=== PATIENT | female | born 1995 | race African-American/Black ===

== ENCOUNTER 2017-05-01 22:43 | Emergency (ER) | payer MEDICAID ==
[~2017-05-01] VITALS: Ht 162.6 cm; Wt 56.2 kg
[~2017-05-01 22:43] MED LIST: KEFLEX500 MG ORAL; NKM
--- NOTE | 2017-05-01 23:13 | Emergency Room Report ---
History of Present Illness General Chief Complaint: General Complaint Source: Patient Present Illness HPI Is a 21-year-old female with no past medical history. She presents with multiple complaints. She's been complaining of an of sore throat and phlegm in the back of throat for the last month. Also with some chest pain from coughing. No fever or chills. No nausea no vomiting. [place] weak and tired. Also some weight loss. Denies any other complaint. No urinary complaint. Allergies: Coded Allergies: No Known Allergies (Unverified , 04/25/14) Patient History Past Medical History: see triage record, old chart reviewed Past Surgical History: other Pertinent Family History: none Social History: Denies: smoking Last Menstrual Period: 1 week ago Now: No Immunizations: other Reviewed Nursing Documentation: PMH: Agreed, PSxH: Agreed Nursing Documentation-PMH Past Medical History: No Stated History Review of Systems Eye: Denies: eye pain, blurred vision ENT: Reports: throat pain, Denies: ear pain, nose congestion, throat swelling Respiratory: Denies: cough, shortness of breath Cardiovascular: Reports: chest pain, Denies: palpitations Gastrointestinal: Denies: abdominal pain, diarrhea, nausea, vomiting Musculoskeletal: Denies: back pain, joint pain Skin: Denies: rash Neurological: Denies: headache, numbness Endocrine: Denies: increased thirst, increased urine Hematologic/Lymphatic: Denies: easy bruising All Other Systems: negative except mentioned in HPI Physical Exam Vital Signs Date Time Temp Pulse Resp B/P (MAP) Pulse Ox O2 Delivery O2 Flow Rate FiO2 05/01/17 22:49 98.6 86 16 128/82 100 Room Air vitals normal Sp02 EP Interpretation: reviewed, normal General Appearance: well appearing, no apparent distress, alert Head: normocephalic, atraumatic Eyes: bilateral eye PERRL, bilateral eye EOMI ENT: hearing grossly normal, normal pharynx Neck: full range of motion, supple, no meningismus Respiratory: chest non-tender, lungs clear, normal breath sounds Cardiovascular #1: regular rate, rhythm, no murmur Gastrointestinal: normal bowel sounds, non tender, no mass, no organomegaly, no bruit, non-distended Musculoskeletal: back normal, gait/station normal, normal range of motion Psychiatric: mood/affect normal Skin: warm/dry Medical Decision Making Diagnostic Impression: Primary Impression: UTI (urinary tract infection) Qualified Codes: N30.00 - Acute cystitis without hematuria Additional Impressions: Encounter for generalized patient complaints Allergic rhinitis ER Course Present with multiple general complaints. Nothing significant. No evidence of pneumonia, sepsis. May have a UTI. We'll treat the UTI Last Vital Signs Date Time Temp Pulse Resp B/P (MAP) Pulse Ox O2 Delivery O2 Flow Rate FiO2 05/01/17 22:49 98.6 86 16 128/82 100 Room Air Status: improved Disposition: HOME, SELF-CARE Condition: Stable Scripts Loratadine (CLARITIN) 10 Mg Tablet 10 MG ORAL DAILY, #30 TAB Prov: NIKKI HU M.D. 05/02/17 Cephalexin* (KEFLEX*) 500 Mg Capsule 500 MG ORAL TID, #21 CAP 0 Refills Prov: NIKKI HU M.D. 05/02/17 Additional Instructions: Followup with your Dr. in 7 days. Return if symptom worsen. NIKKI HU M.D. May 01, 2017 23:13
[2017-05-01 23:29] LABS: BASOPHILS % (AUTO) 0.8 % (0.0-2.0); EOSINOPHILS % (AUTO) 0.9 % (0.0-3.0); LYMPHOCYTES % (AUTO) 41.3 % (20.0-45.0); MEAN CORPUSCULAR HEMOGLOBIN 34.9 PG (27.0-31.0); MEAN CORPUSCULAR HGB CONC 34.9 G/DL (32.0-36.0); MEAN CORPUSCULAR VOLUME 100 FL (80-99); MEAN PLATELET VOLUME 6.4 FL (6.5-10.1); MONOCYTES % (AUTO) 7.2 % (1.0-10.0); NEUTROPHILS % (AUTO) 49.8 % (45.0-75.0); PLATELET COUNT 211 K/UL (150-450); RED BLOOD COUNT 3.86 M/UL (4.20-5.40); RED CELL DISTRIBUTION WIDTH 12.1 % (11.6-14.8); WHITE BLOOD COUNT 7.8 K/UL (4.8-10.8)
[2017-05-01 23:35] LABS: APPEARANCE,URINE CLEAR; KETONES,URINE NEGATIVE (NEGATIVE); NITRITE,URINE NEGATIVE (NEGATIVE); PH,URINE 6 (4.5-8.0); PROTEIN,URINE 1+ (NEGATIVE); UROBILINOGEN,URINE NORMAL MG/DL (0.0-1.0)
[2017-05-01 23:45] LABS: LEUKOCYTE ESTERASE ,URINE 2+ (NEGATIVE)
[2017-05-01 23:46] LABS: BACTERIA,URINE MODERATE /HPF; SQUAMOUS EPITHELIAL CELL,UR MANY /LPF (NONE/OCC)
[2017-05-01 23:51] LABS: ANION GAP 12 (5-15); CALCIUM 9.9 mg/dL (8.6-10.2); CARBON DIOXIDE 28 mEQ/L (20-30); CHLORIDE 99 mEQ/L (98-107); CREATININE 0.7 mg/dL (0.5-0.9); GLOMERULAR FILTRATION RATE > 60 mL/min (>60); HEMOLYSIS 1; POTASSIUM 3.5 mEQ/L (3.4-4.9); SODIUM 139 mEQ/L (135-145)
[2017-05-02] MEDS ORDERED: KEFLEX500 MG ORAL (00:04)
[2017-05-02] MEDS ORDERED: CLARITIN10 MG ORAL (00:04)
[2017-05-02 00:07] VITALS: BP 128/82
[2017-05-02 00:12] VITALS: BP 128/82
== END 2017-05-02 00:13 | disposition home or self-care (01) ==
LOC: EMR 22:55
DX: N39.0 Urinary tract infection, site not specified (principal); J30.9 Allergic rhinitis, unspecified
CPT/HCPCS: 36415; 80048; 81001; 81025; 85025; 87086; 87181; 99284